=== PATIENT | male | born 1950 ===

== ENCOUNTER 2017-08-17 06:22 | Day surgery (SDC) | payer MEDICARE ==
[2017-08-13 11:05] VITALS: BMI 31.4
[2017-08-17] MEDS ORDERED: ceFAZolin 2 GM in Sodium Chloride 0.9% 100 ML IVPB ONE (06:42)
[2017-08-17] MEDS ORDERED: Bupivacaine 0.5% Inj(30mL) IJ ONE (06:42)
[2017-08-17] MEDS ORDERED: Lidocaine 1% Inj (20ml) IJ ONE (06:42)
[2017-08-17] MEDS ORDERED: Sodium Chloride 0.9% 1,000 ML IV SCH (06:45)
[2017-08-17] MEDS ORDERED: Lidocaine 1% Inj (20ml) ONE (07:22)
[2017-08-17] MEDS ORDERED: Bupivacaine 0.5% Inj(30mL) ONE (07:22)
[2017-08-17] MEDS ORDERED: ceFAZolin IV 1 gm in Dextrose 1 GM/50 ML BAG IVPB ONE (07:22)
--- NOTE | 2017-08-17 07:25 | CP.SDSHP ---
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 - Allergies Allergies: Allergies No Known Allergies Allergy (Verified 08/17/17 06:33) - Physical Exam Vital Signs: Vital Signs 08/17/17 08/17/17 06:54 07:00 Temperature 98.5 F Pulse Rate 73 73 Respiratory 18 Rate Blood Pressure 143/86 O2 Sat by Pulse 94 L Oximetry Mental Status: Alert & Oriented x3 Neuro: WNL Heart: WNL Lungs: WNL - Date & Time Date: 08/17/17 Time: 07:24 Short Stay Discharge - Short Stay Discharge Admitting Diagnosis/Reason for Visit: M24.571 M76.61 Disposition: HOME/ ROUTINE Additional Instructions (Diet, Activity): -Patient in good/stable condition for discharge home -Pt to resume medications per medical reconciliation -Resume regular diet Please keep dressing clean, dry, & intact to surgical site -Use plastic bag over bandage for showering -Wear post op shoe at all times when ambulating -Call clinic if you seesigns of infection (redness, swelling, malodor) -Please make an appointment to see Dr. Cannon in office/clinic within 1 week for post-op check Progress Note/Discharge Note with Instructions: - Patient evaluated bedside in recovery s/p surgical procedure. - After surgical procedure patient in NAD - (+) Void, (+) Appetite - Capillary refill time <3s and NVSI intact. - Patient denies complaints at this time - Post operative instructions and plan of care explained to patient at length. - Pt. acknowledges understanding. - Patient stable for DC per podiatric surgery
--- NOTE | 2017-08-17 07:28 | CP.PCM.PN ---
Subjective - Date & Time of Evaluation Date of Evaluation: 08/17/17 Time of Evaluation: 07:25 - Subjective Subjective: 67 y/o male with PMHx of HTN, DM, Hyperlipidemia seen and evaluated at bedside in [facility] for Exostectomy of posterior heel; Achilles tendon ablation and gastroc release of the right. Patient states that he has been NPO since midnight. Denies of any adverse reactions to anesthesia. Denies of any recent F/N/V/C/SOB/ CP. Denies of any other pedal complains at this time. PMHx: HTN, DM, Hyperlipidemia PSHx: Denies Allergies: N.K.D.A Objective - Vital Signs/Intake and Output Vital Signs (last 24 hours): Temp Pulse Resp BP Pulse Ox 98.5 F 73 18 143/86 94 L 08/17/17 06:54 08/17/17 07:00 08/17/17 06:54 08/17/17 06:54 08/17/17 06:54 - Medications Medications: Current Medications Cefazolin Sodium 2 gm/ Sodium (Chloride) 100 mls @ 100 mls/hr IVPB ONCE ONE PRN Reason: Protocol Stop: 08/17/17 07:41 Sodium Chloride (Sodium Chloride 0.9%) 1,000 mls @ 120 mls/hr IV .Q8H20M [facility] Stop: 08/18/17 06:43 - Constitutional Appears: Well, Non-toxic, No Acute Distress - Extremities Exam Extremities Exam: absent: Calf Tenderness Additional comments: Right LE focused exam: VASC: DP/PT palpable 2/4, Cap refill time: < 3 sec to all digits, Temp gradient : warm to cool from proximal to distal, no pitting or non-pitting edema noted DERM: no open lesions, no interdigital maceration, mild erythema on the posterior medial aspect of the right heel NEURO: Protective sensation grossly intact ORTHO: Tanisha protuberance noted to the posterior medial aspect of the right heel , pain on palpation of the posterior heel - Neurological Exam Neurological Exam: Alert, Awake, Oriented x3 - Psychiatric Exam Psychiatric exam: Normal Affect, Normal Mood Assessment and Plan - Assessment and Plan (Free Text) Assessment: 67 y/o male with PMHx of HTN, DM, Hyperlipidemia seen and evaluated at bedside in [facility] for Exostectomy of posterior heel; Achilles tendon ablation and gastroc release of the right. Plan: Pt was seen and examined in [facility] Pt NPO status was confirmed All Pre-op testing and clearance was in the chart Pt has exhausted all conservative treatment at this time and is opting for surgical intervention Pt was explained procedure and post-operative course All pt's questions were answered to satisfaction No guarantees were made Pt understands all risks, benefits and complications of procedure Pt will follow-up with Dr. Cannon
[2017-08-17] MEDS ORDERED: Lactated Ringer's 1,000 ML IV ONE ×2 (07:45→09:25)
[2017-08-17] MEDS ORDERED: Ropivacaine 0.5% 30ML IV ONE (08:05)
[2017-08-17] MEDS ORDERED: SENSORCAINE 0.5% W/EPINEPHRINE 50ML MDV IJ ONE (08:10)
--- NOTE | 2017-08-17 09:48 | PCM.SURG1 ---
Surgeon's Initial Post Op Note - Surgeon's Notes Surgeon: Dr. Estrella Cannon DPM [employer] Officer: Dr. Thompson DPM PGY-2, Dr. Emerson DPM PGY-3 Type of Anesthesia: General Endo Anesthesia Administered By: Dr. Michael VASQUEZ Pre-Operative Diagnosis: Right ankle equinus deformity and contracture, Retrocalcaneal exostosis Operative Findings: See dictation. M: [place] size 0 sonic anchor, 4-0 vicryl, 3-0 vicryl, 4-0 prolene. I: 20 cc of 1:1 mixture of 1% lidocaine plain: 0.5% marcain plain Post-Operative Diagnosis: Same Operation Performed: Right retrocalcaneal exostosis with achilles tendon debridement, right gastroc resection, right achilles tendon debridement Specimen/Specimens Removed: none Estimated Blood Loss: EBL {In ML}: 1 Blood Products Given: N/A Drains Used: No Drains Post-Op Condition: Good Date of Surgery/Procedure: 08/17/17 Time of Surgery/Procedure: 10:00
[2017-08-17] MEDS ORDERED: Oxycodone/Acetaminophen 5/325 mg Tab PO PRN ×2 (09:53)
[2017-08-17] MEDS ORDERED: HYDROmorphone 0.5 mg/0.5 ml ISec IVP PRN (10:08)
[2017-08-17 11:05] VITALS: RESP 18
--- NOTE | 2017-08-17 11:18 | RAD ---
PROCEDURE: Intraoperative Fluoroscopy. HISTORY: PODIATRY FINDINGS: Fluoroscopic assistance was provided. Please refer to the operative report for additional details and findings.
--- NOTE | 2017-08-17 12:24 | RAD ---
HISTORY: Status post right foot and ankle surgery PROCEDURE: Right ankle dated 08/17/2017 COMPARISON: Comparison made with concurrent radiographs of the right foot as well as prior ankle radiographs dated 06/20/2017 FINDINGS: BONES: There appears to have been partial resection the distal tip prominent enthesophyte seen arising from the plantar surface of the calcaneus. In addition, presumed postoperative infiltration changes within the posterior subcutaneous tissues from the level of the calcaneus at through the lower 1/3 of the right calf (along the distribution of the Achilles tendon. Clinical correlation with surgical history recommended). . . Small plantar surface calcaneal enthesophyte remains. . In addition, there appears to be small osteophyte seen arising from the inferior margins of both the medial and lateral malleoli IMPRESSION: Status post partial resection distal tip prominent posterior calcaneal enthesophyte. Apparent postoperative changes within the dorsal soft tissues along the distribution of the Achilles tendon. Clinical correlation with the surgical history recommended. .
--- NOTE | 2017-08-17 12:25 | RAD ---
PROCEDURE: Right Foot Radiographs. HISTORY: s/p right foot and ankle surgery COMPARISON: Correlation made with concurrent radiographs of the right ankle and prior radiographs right foot 04/06/2017. FINDINGS: BONES: There appears to have been partial resection the distal tip prominent enthesophyte seen arising from the plantar surface of the calcaneus. Previously noted presumed postoperative infiltration changes within the posterior subcutaneous tissues from the level of the calcaneus at through the lower 1/3 of the right calf (along the distribution of the Achilles tendon. Clinical correlation with surgical history recommended) incompletely visualized on this study as compared to ankle radiographs. Small plantar surface calcaneal enthesophyte remains. . Mild to moderate hallux valgus deformity with overgrowth of the head of the 1st metatarsal and DJD 1st MTP joint. . There appears to be extension deformities at the 2nd 3rd and 4th metatarsals with slight lateral subluxation. Multi articular DJD JOINTS: As above SOFT TISSUES: As above. OTHER FINDINGS: None. IMPRESSION: Postoperative changes within the posterior soft tissues along the distribution of the calices however correlation with surgical history recommended.
[2017-08-17 14:19] VITALS: BP 131/72; PULSE 99; TEMP 98.4; O2SAT 95
--- NOTE | 2017-08-22 07:59 | OP ---
PROCEDURE DATE: 08/17/2017 PREOPERATIVE DIAGNOSES: 1. Right foot gastroc-soleus equinus contracture. 2. Right foot retro-calcaneal intra-tendinous exostosis. 3. Right foot Achilles tendinosis. POSTOPERATIVE DIAGNOSES: 1. Right foot gastroc-soleus equinus contracture. 2. Right foot retro-calcaneal intra-tendinous exostosis. 3. Right foot Achilles tendinosis. PROCEDURES: 1. Right gastrocnemius fascial recession. CPT code 87893. 2. Right foot retro-calcaneal exostectomy. CPT code 56392. 3. Right Achilles tendon repair. CPT code 05340. 4. Right foot tenolysis. CPT code 94070. 5. Right foot intra-operative fluoroscopy. CPT code 23221. 6. Application of fiberglass cast, right foot. CPT code 09777. SURGEON: Estrella Cannon DPM [employer] SUPERVISOR: Lexie Candelaria, PGY2 and Yeyo Campos PGY3 TYPE OF ANESTHESIA: General LMA, popliteal block and local block ANESTHESIA ADMINISTERED BY: Dr. Arcadio MD. SPECIMEN: None. INDICATION: The patient is a 67-year-old male with the above stated diagnoses. The patient has exhausted all conservative treatment options and now is requesting surgical intervention for his longstanding right Achilles pain he patient signed the surgical consent after careful explanation of risks, benefits, complications, and potential alternatives to the proposed surgical procedures. No guarantees were either given or implied. All patient's questions were answered to his satisfaction. PREPARATION: The patient's n.p.o. status was confirmed prior to bringing the patient to the pre-operative area. The patient was seen in the pre- operative area where the appropriate limb was marked, right posterior calf and Achilles tendon, signifying the surgical sites. All questions and concerns were addressed and the consent was witnessed and signed. The patient is understanding of all post operative instructions and states that he will comply. The patient was brought into the operating suite and IV anesthesia was induced. At this time a well-padded pneumatic right thigh tourniquet was applied and the trouniquet machine was set at 350mmHg to be inflated once the procedure began. Next, a LMA was placed and after confirmation from anesthesia the patient was turned into a prone position. The patient then received 2g of IV antibiotics, administered without reaction. A total of 20 mL 0.5% Marcaine plain was injected in a local block type fashion distributed equally between the posterior right myofascial junction of the gastrocsoleus muscle and along the Achilles tendon insertion incision site. At this juncture the patient' s right foot and lower leg were then were prepped and draped in the usual sterile manner, tourniquet was inflated, and the procedure was began. DESCRIPTION OF PROCEDURE: PROCEDURE #1. Right foot open gastrocnemius recession. CPT code 07600 Attention was then directed to the distal myotendinous junction of the gastrocnemius muscle belly. At this level, myotendinous junction was appreciated. At this time, 2 mm to midline in the middle one-third of the leg, a 3-cm linear longitudinal incision was made along the long axis of the lower leg using a #15 blade. This incision was extended down to subcutaneous tissue layers with care being taken to avoid all vital neurovascular structures. All bleeders were cauterized and ligated as needed. At this time, using blunt dissection, crural fascia was pierced and retracted medially and laterally, thus fully exposing gastrocnemius fascia. At this time, blunt dissection was performed to fully expose the medial and lateral borders of the gastrocnemius fascia at this level, which was assessed intraoperatively with stressed dorsiflexion and plantar flexion at the ankle joint, which produced mobilization of the gastrocnemius fascia. At this time, with medial and lateral borders of gastrocnemius fascia appreciated, inspection was performed and it was noted that soleus muscular tendinous junction was appreciated at this level. Along the superior margin of the gastrocnemius fascia overlying the soleus muscle belly, a transverse fasciotomy was performed, transecting medial central and lateral bands of gastrocnemius fascia, allowing gastrocnemius recession once ankle joint fully dorsiflexed, to increase recession. At this time, it was noted that no fascial bands remained and the transverse incision did not extend into soleus muscle belly. At this time, with range of motion greatly improved at the level of the ankle joint, the incision site was then flushed with copious amounts of sterile saline. Subcutaneous tissue was reapproximated using 3-0 Vicryl. Skin was reapproximated using 4-0 Prolene. PROCEDURES #2 Retrocalcaneal exostectomy CPT code 17713 At this time, attention was directed to the distal aspect at the level of the Achilles tendon insertion. At this time, intraoperative C-arm was introduced and on lateral view, the most distal attachment of retrocalcaneal exostosis was appreciated. With triangulation complete, this level was marked using skin marker as distal apex for skin incision. A 6-cm longitudinal incision was made along the long axis of Achilles tendon, 2 mm medial to midline, to avoid sural nerve using #15 blade. This incision was extended down through the subcutaneous tissue layers with blunt dissection. Care was taken to avoid, retract, and identify all vital neurovascular structures. All bleeders were cauterized and ligated as needed. At this time, dermal tissue was retracted medially and laterally, thus fully exposing mague-tenon of distal one-quarter of Achilles tendon course. A linear longitudinal incision was made to Achilles tendon peritenon, which was retracted medially and laterally. At this time, distal one-third Achilles tendon insertion was appreciated and it was noted that there were 2 partial-thickness longitudinal tears in the Achilles tendon body. It is noted that intraoperative tenolysis will be need to be performed once tendon was reapproximated later in the procedure, once exostosis resection was complete. At this time, with a midline longitudinal incision was made full-thickness to Achilles tendon body, then to Achilles tendon attachment in middle one-third of calcaneus. Using sharp dissection, intertendinous calcaneal exostosis was freed of its tendinous attachments and fully exposed to the operative view. At this time, osteotome was utilized and intertendinous exostosis was resected and passed from the operative field. At this time hypertrophic disorganized Achilles tendon fibers were appreciated from region surrounding excised exostosis bone. These disorganized fibers were sharply excised and passed from the operative field, leaving normal-appearing longitudinal Achilles tendon fibers. PROCEDURE #3 Right foot intra-operative fluoroscopy. CPT code 34521. At this time, intraoperative fluoroscopy was reintroduced to assess if adequate level of resection has been performed. Fluoroscopy revealed that no significant exostosis remained retro-calcaneally in intertendinous substance. Incision site was then flushed with copious amounts of sterile saline. PROCEDURE #4 Right Achilles tendon repair. CPT code 58673. Medial retrocalcaneal surface was then rasped smooth in preparation for Erhard Sonic anchor system to allow Achilles tendon repair. Midline grease monkey hole drilled perpendicular prepared bone surface was performed. At this time, Erhard Sonic [place], size 0 was introduced in the surgical field. Incision site was then flushed with copious amounts of sterile saline. Prepared Britni insert was then placed and sonic energy was delivered to fully couple anchor to cortical and medullary bone of calcaneus. At this time axial load was tested and noted that anchor did not retrograde out of bony surface. At this time, Krackow locking stitch was utilized to anchor and reapproximate Achilles tendon longitudinal incision site and fully reinforce Achilles tendon at Achilles tendon insertion. At this time, once Achilles tendon repair was performed, ankle joint stress dorsiflexion was performed to confirm that Achilles tendon reattachment was secured and could withstand axial and sagittal load with this testing complete and showed adequate resistance to strain and anchor stability. PROCEDURE #5 Right foot tenolysis. CPT code 01548. Along the prior areas of interstitial tears within the main substance of the achilles a decision to perform intraoperative tenolysis was made to allow for maximal response for healing. This was performed with a 18 gauge needle. Incision site was then flushed with copious amounts of sterile saline. At this time, paratenon was reapproximated using 4-0 Vicryl, subcutaneous tissue was reapproximated using 3-0 Vicryl, and skin was reapproximated using 4-0 Prolene. All incision sites were then dressed with a sterile bandage consisting of adaptic, 4 x 4 gauze, Webril, taylor. The tourniquet was deflated from 350mmhg with instantaneous capillary refill time to all distal pulps of the right foot. PROCEDURE #6 Application of fiberglass cast, right foot. CPT code 17954. Patient right knee was bent at a 90 degree angle in relation to the leg as well as the foot in relationship to ankle.A stockinette was applied, the limb was carefully wrapped with webril to carefully pad the posterior calf, anterior ankle and dorsal foot. The fiberglass was applied and held until dried to ensure maximum dorsiflexion of the gastro-soleal resection as well as to prevent adheasions in the achilles surgical site. POSTOPERATIVE CONDITION: The patient tolerated the anesthesia and procedure well, was escorted to the recovery room with vital signs stable and neurovascular status intact to the right lower extremity. Postoperative popliteal block was performed by Anesthesia. The patient will follow up with Dr. Cannon on an outpatient basis in the [facility]. Lexie Candelaria DPM Estrella Cannon DPM MTDBimal
== END 2017-08-17 15:15 | disposition home or self-care (01) ==
LOC: H.OPSURG 06:22
PROVIDERS: ATTEND Podiatrist Primary Podiatric Medicine
DX: M24.571 Contracture, right ankle (principal); M76.61 Achilles tendinitis, right leg; E11.9 Type 2 diabetes mellitus without complications; E78.5 Hyperlipidemia, unspecified; I10 Essential (primary) hypertension; G47.33 Obstructive sleep apnea (adult) (pediatric)
CPT/HCPCS: 27650; 27687; 28118; 28220; 29405; 73610; 73630; 82948; 97116; 97161; 97530; C1713; G8978; G8979; J0330; J0690; J2001; J2250; J2405; J2704; J2710; J3010; J7030; J7040; J7120